=== PATIENT | female | born 2000 | race African-American/Black ===

== ENCOUNTER 2019-10-02 03:28 | Emergency (ER) | payer OTHER ==
[~2019-10-02] VITALS: Ht 157.5 cm; Wt 59.0 kg
[2019-10-02 03:28] VITALS: BP 147/98; TEMP 98.9
[2019-10-02 04:23] LABS: POTASSIUM 3.8 mmol/L (3.6-5.2)
[2019-10-02 04:29] LABS: PARTIAL THROMBOPLASTIN TIME 26.2 SECONDS (24.5-33.6)
[2019-10-02 07:17] LABS: PLATELET COUNT 180 K/uL (152-353)
[2019-10-02 08:27] VITALS: BP 112/67
== END 2019-10-02 08:27 | disposition short-term general hospital (02) ==
LOC: AOB 03:28 → ED 03:28 → EDIP 04:35 → ED 04:35 → EDIP 07:33 → ED 08:27
PROVIDERS: Hospitalist
PROC: 10E0XZZ Delivery of Products of Conception, External Approach (ICD-10-PCS; principal; 2019-10-02)
DX: O98.52 Other viral diseases complicating childbirth (principal); U07.1 COVID-19; Z37.0 Single live birth; Z3A.40 40 weeks gestation of pregnancy
CPT/HCPCS: 80053; 80320; 85027; 85610; 85730; 86850; 86900; 86901; 96361; 96365; 99285; J0290